=== PATIENT | female | born 1950 | race Caucasian/White ===

== ENCOUNTER 2017-07-19 12:52 | Day surgery (SDC) | payer OTHER ==
[~2017-07-19] VITALS: Ht 167.6 cm; Wt 52.8 kg
[2017-07-19 13:15] VITALS: Ht 167.6 cm; Wt 52.8 kg
[2017-07-19 14:17] VITALS: BP 129/60; RESP 18
[2017-07-19] MEDS ORDERED: MIDAZOLAM 1 MG/ML 2 ML INJ ONE ×2 (14:47→14:48)
[2017-07-19] MEDS ORDERED: FENTAnyl 50 MCG/ML VIAL ONE (14:47)
--- NOTE | 2017-07-19 14:56 | OPPN ---
Date/Time of Note Date/Time of Note DATE: 07/19/17 TIME: 14:51 Operative Report Preoperative Diagnosis [facility]HO COLON CA SCREENING Postoperative Diagnosis FIXED LEFT COLON OTHERWISE NORMAL Operation/Procedure Performed COLONOSCOPY Provider: CHARY SADLER MD Anesthesia Type: moderate sedation (VERSED 3MG/FENTANYL 75 MCG) Estimated blood loss: none (SEE DICTATION) Transfusion Required: no Specimen: none Grafts/Implants: none Complications: no CHARY SADLER MD Jul 19, 2017 14:56
--- NOTE | 2017-07-19 20:30 | GILP ---
DATE OF PROCEDURE: 07/19/2017 PREOPERATIVE DIAGNOSIS: Family history of colon cancer, screening colonoscopy. POSTOPERATIVE DIAGNOSIS: Fixed left colon, otherwise normal colonoscopy. DESCRIPTION OF PROCEDURE: The patient was put in the left lateral decubitus after obtaining informed consent. The patient was monitored for oximetry, EKG, blood pressure. She was given 3 mg IV Versed and 75 mcg of fentanyl. Advanced a pediatric Olympus video colonoscope all the way to cecum. Fixed left colon somewhat probably due to previous hysterectomy, but I was able to get the scope across all the way to cecum. Appendiceal opening and ileocecal valve identified. Cecum, ascending colon, transverse colon, descending colon, sigmoid colon, other than fixed to the sigmoid colon it was normal and the rectum normal including retroflexion. Upon removal of scope the patient had no complication. PLAN: Will be to advise her to follow up with you, and because of the family history maybe a repeat colonoscopy in 5 years, and she will have follow up in your office. Dictated By: Rhonda Webb MD /sara/luisa /Document#: [id number]
== END 2017-07-19 17:01 | disposition home or self-care (01) ==
LOC: GIL 12:52
PROVIDERS: ATTEND Internal Medicine
DX: Z12.11 Encounter for screening for malignant neoplasm of colon (principal); Z80.0 Family history of malignant neoplasm of digestive organs; I10 Essential (primary) hypertension
CPT/HCPCS: 45378; J2250; J3010